=== PATIENT | female | born 1960 | race Caucasian/White ===

== ENCOUNTER 2024-03-05 07:04 | Day surgery (SDC) | payer OTHER ==
[~2024-03-05] VITALS: Ht 154.9 cm; Wt 57.6 kg
[2024-03-05] MEDS ORDERED: MIDAZOLAM HCL 5 MG/5 ML VIAL ONE (07:26)
[2024-03-05] MEDS ORDERED: MEPERIDINE 100 MG INJ. 100 MG/ML VIAL ONE (07:26)
[2024-03-05 11:44] VITALS: O2SAT 98
[2024-03-05 14:22] VITALS: BP_SYST 100; PULSE 70; RESP 11
== END 2024-03-05 10:50 | disposition home or self-care (01) ==
LOC: SDS 07:04 → SMU 07:06 → SDS 10:50
PROVIDERS: ATTEND Student in an Organized Health Care Education/Training Program
DX: K92.1 Melena (principal); K64.8 Other hemorrhoids; K64.4 Residual hemorrhoidal skin tags; K21.9 Gastro-esophageal reflux disease without esophagitis; E03.9 Hypothyroidism, unspecified; G43.909 Migraine, unspecified, not intractable, without status migrainosus; M19.90 Unspecified osteoarthritis, unspecified site; Z90.89 Acquired absence of other organs; Z98.890 Other specified postprocedural states; Z79.890 Hormone replacement therapy; Z79.899 Other long term (current) drug therapy
CPT/HCPCS: 45378; 99152; 99153; G0378; J2250; J2175